=== PATIENT | male | born 1990 | race African-American/Black ===

== ENCOUNTER 2021-02-04 16:59 | Emergency (ER) | payer OTHER ==
[~2021-02-04] VITALS: Ht 154.9 cm; Wt 79.0 kg
--- NOTE | 2021-02-04 17:29 | NUR ---
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
--- NOTE | 2021-02-04 17:52 | NUR ---
DR ARAUZ BEDSIDE
[2021-02-04 18:41] VITALS: BP 132/95
--- NOTE | 2021-02-04 18:42 | NUR ---
PT REC'VD DISCHARGE INSTRUCTIONS AND EDUCATION. PT HAD NO FURTHER QUESTIONS.
--- NOTE | 2021-02-04 18:52 | NUR ---
PT AMBULATED TO MT AREA, STEADY GAIT.
== END 2021-02-04 18:57 | disposition home or self-care (01) ==
LOC: EDBD 16:59 → ED 17:29
DX: S29.012A Strain of muscle and tendon of back wall of thorax, initial encounter (principal); M25.561 Pain in right knee; M54.5 Low back pain; X58.XXXA Exposure to other specified factors, initial encounter; Y93.89 Activity, other specified; Y92.89 Other specified places as the place of occurrence of the external cause; Y99.8 Other external cause status
CPT/HCPCS: 72072; 72110; 99284